=== PATIENT | female | born 1995 | race Two or more races ===

== ENCOUNTER 2017-02-21 08:44 | Emergency (ER) | payer SELFPAY ==
[2017-02-21] MEDS ORDERED: NORMAL SALINE 1000 ML 1,000 ML IV ONE ×2 (09:53→12:30)
[2017-02-21] MEDS ORDERED: ONDANSETRON HCL INJ/PF 4 MG/2 ML SDV IV ONE (09:54)
[2017-02-21 10:14] LABS: APPEARANCE,URINE CLOUDY; BILIRUBIN,URINE NEGATIVE (NEGATIVE); GLUCOSE, URINE NEGATIVE (NEGATIVE); KETONES,URINE NEGATIVE (NEGATIVE); LEUKOCYTE ESTERASE,URINE TRACE (NEGATIVE); NITRITE,URINE NEGATIVE (NEGATIVE); PROTEIN,URINE NEGATIVE (NEGATIVE); URINE SPECIFIC GRAVITY 1.024; UROBILINOGEN,URINE NEGATIVE mg/dL (<2.0)
[2017-02-21 10:31] LABS: ABSOLUTE EOSINOPHILS # (AUTO) 0.1 10^3/uL (0.0-0.6); ABSOLUTE LYMPHOCYTES (AUTO) 1.5 10^3/uL (0.5-4.7); ABSOLUTE MONOCYTES (AUTO) 0.8 10^3/uL (0.1-1.4); ABSOLUTE NEUT (AUTO) 10.3 10^3/uL (1.7-8.2); BASOPHILS % (AUTO) 0.3 % (0-2); EOSINOPHILS % (AUTO) 0.5 % (0-6); HEMATOCRIT 41.1 % (36.0-47.0); HEMOGLOBIN 13.4 g/dL (12.0-15.5); HGB HCT DIFFERENCE -0.9; LYMPHOCYTES % (AUTO) 11.7 % (13-45); MEAN CORPUSCULAR HEMOGLOBIN 27.9 pg (27.0-33.4); MEAN CORPUSCULAR HGB CONC 32.7 g/dL (32.0-36.0); MEAN CORPUSCULAR VOLUME 86 fl (80-97); MONOCYTES % (AUTO) 6.4 % (3-13); RED CELL DISTRIBUTION WIDTH 15.1 % (11.5-14.0); SEGMENTED NEUTROPHILS % (AUTO) 81.1 % (42-78); WHITE BLOOD COUNT 12.7 10^3/uL (4.0-10.5)
--- NOTE | 2017-02-21 10:44 | ER Document Report ---
ED General - General Chief Complaint: Back Pain Stated Complaint: ABDOMINAL PAIN Time Seen by Provider: 02/21/17 09:27 TRAVEL OUTSIDE OF THE [place] IN LAST 30 DAYS: No - HPI Patient complains to provider of: Epigastric right upper quadrant pain Notes: Patient coming in with epigastric right upper quadrant pain ongoing since yesterday. Patient states had posterior yesterday for dinner. Patient states multiple bouts of nausea vomiting. 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 Patient denies any further evaluation. Patient denies any other surgeries. Denies fevers and chills. Upon my evaluation patient is sitting up comfortably in no obvious distress. Denies any recent illnesses denies any recent travel denies any recent antibiotics. - Related Data Allergies/Adverse Reactions: No Known Allergies Allergy (Verified 02/21/17 08:52) Past Medical History - Social History Smoking Status: Unknown if Ever Smoked Family History: Reviewed & Not Pertinent Renal/ Medical History: Denies: Hx Peritoneal Dialysis Review of Systems - Review of Systems Constitutional: No symptoms reported EENT: No symptoms reported Cardiovascular: No symptoms reported Respiratory: No symptoms reported Gastrointestinal: Abdominal pain Genitourinary: No symptoms reported Female Genitourinary: No symptoms reported Musculoskeletal: No symptoms reported Skin: No symptoms reported Hematologic/Lymphatic: No symptoms reported Neurological/Psychological: No symptoms reported -: Yes All other systems reviewed and negative Physical Exam - Vital signs Vitals: Temp Pulse Resp BP Pulse Ox 97.7 F 54 L 18 92/72 L 100 02/21/17 08:49 02/21/17 08:49 02/21/17 08:49 02/21/17 08:49 02/21/17 08:49 Interpretation: Normal - General General appearance: Appears well, Alert - HEENT Head: Normocephalic, Atraumatic Eyes: Normal Pupils: PERRL - Respiratory Respiratory status: No respiratory distress Chest status: Nontender Breath sounds: Normal Chest palpation: Normal - Cardiovascular Rhythm: Regular Heart sounds: Normal auscultation Murmur: No - Abdominal Inspection: Normal Distension: No distension Bowel sounds: Normal Tenderness: Tender - Right upper quadrant pain, Son's sign Organomegaly: No organomegaly - Back Back: Normal, Nontender - Extremities General upper extremity: Normal inspection, Nontender, Normal color, Normal ROM , Normal temperature General lower extremity: Normal inspection, Nontender, Normal color, Normal ROM , Normal temperature, Normal weight bearing. No: Juventnio's sign - Neurological Neuro grossly intact: Yes Cognition: Normal Orientation: AAOx4 [place] Coma Scale Eye Opening: Spontaneous [place] Coma Scale Verbal: Oriented [place] Coma Scale Motor: Obeys Commands [place] Coma Scale Total: 15 Speech: Normal Motor strength normal: LUE, RUE, LLE, RLE Sensory: Normal - Psychological Associated symptoms: Normal affect, Normal mood - Skin Skin Temperature: Warm Skin Moisture: Dry Skin Color: Normal Course - Re-evaluation Re-evalutation: 02/21/17 18:15 The patient presents with abdominal pain without signs of peritonitis or other life-threatening or serious etiology. The patient appears stable for discharge and has been instructed to return immediately if the symptoms worsen in any way , or in 8-12hr if not improved for re-evaluation. The patient has been instructed to return if the symptoms worsen or change in any way. Patient coming in for right parotid abdominal pain with surgical sounds still recommend surgery however patient opted for medical management at this time. Patient will control her diet patient states she would like to wait till she returns to [place]. - Vital Signs Vital signs: Temp Pulse Resp BP Pulse Ox 98.5 F 66 16 107/59 L 99 02/21/17 15:43 02/21/17 15:43 02/21/17 15:43 02/21/17 15:43 02/21/17 15:43 - Laboratory Result Diagrams: 02/21/17 10:18 02/21/17 10:18 Laboratory results interpreted by me: 02/21/17 02/21/17 02/21/17 09:55 10:18 10:18 WBC 12.7 H RDW 15.1 H Seg Neutrophils % 81.1 H Lymphocytes % 11.7 L Absolute Neutrophils 10.3 H Direct Bilirubin 0.5 H AST 135 H ALT 82 H Ur Leukocyte Esterase TRACE H Discharge - Discharge Clinical Impression: Gallbladder sludge Condition: Good Disposition: HOME, SELF-CARE Instructions: Gallbladder Disease ([facility]), Low-Fat Diet ([facility]), Oral Narcotic Medication ([facility]) Additional Instructions: Your pain is more likely related to the sludge in her gallbladder. I recommend avoiding any food high in grease fat or oil. Return to the ER symptoms worsen. Take medications as prescribed. Prescriptions: Ondansetron [Zofran Odt 4 mg Tablet] 4 mg PO Q4HP PRN #30 tab.rapdis PRN Reason: Hydrocodone Bit/Acetaminophen [Hydrocodon-Acetaminophen 5-325] 1 each PO Q6 #30 tablet Forms: Return to Work
[2017-02-21 10:54] LABS: ALANINE AMINOTRANSFERASE 82 U/L (9-52); ALBUMIN 4.5 g/dL (3.5-5.0); ALKALINE PHOSPHATASE 104 U/L (38-126); ANION GAP 14 (5-19); ASPARTATE AMINO TRANSFERASE 135 U/L (14-36); BILIRUBIN,DIRECT 0.5 mg/dL (0.0-0.4); BILIRUBIN,TOTAL 0.6 mg/dL (0.2-1.3); BLOOD UREA NITROGEN 11 mg/dL (7-20); CALCIUM 9.9 mg/dL (8.4-10.2); CARBON DIOXIDE 25 mmol/L (22-30); CHLORIDE 104 mmol/L (98-107); CREATININE RESULT 0.72 mg/dL (0.52-1.25); GLUCOSE 110 mg/dL (75-110); LIPASE 117.4 U/L (23-300); POTASSIUM 4.1 mmol/L (3.6-5.0); SODIUM 142.5 mmol/L (137-145); TOTAL PROTEIN 7.7 g/dL (6.3-8.2)
[2017-02-21 11:09] LABS: ALCOHOL < 10 mg/dL (NONE DETECTED)
--- NOTE | 2017-02-21 12:20 | RADIOLOGY REPORT (SQ) ---
EXAM DESCRIPTION: U/S ABDOMEN LTD W/DOPPLER COMPLETED DATE/TIME: 02/21/2017 11:39 am REASON FOR STUDY: ruq pain COMPARISON: None. TECHNIQUE: Dynamic and static grayscale images acquired of the abdomen and recorded on PACS. Gennao merrick selected color Doppler and spectral images recorded. LIMITATIONS: None. FINDINGS: PANCREAS: No masses. Visualized pancreatic duct normal caliber. LIVER: 18.2 cm. Normal echotexture. LIVER VASCULATURE: Normal directional flow of the main portal vein and hepatic veins. GALLBLADDER: No stones. There appears to be a small amount of sludge present. Normal wall thickness . No pericholecystic fluid. ULTRASOUND-DETECTED DELUNA'S SIGN: Negative. INTRAHEPATIC DUCTS AND COMMON DUCT: Common bile duct is dilated at 11.5 mm. There is not appear to b e significant intrahepatic ductal dilatation, however. INFERIOR VENA CAVA: Normal flow. AORTA: No aneurysm. RIGHT KIDNEY: Normal size, 11.3 cm. Normal echogenicity. No solid or suspicious masses. No hydroneph rosis. No calcifications. PERITONEAL AND RIGHT PLEURAL SPACE: No ascites or effusions. OTHER: No other significant findings. IMPRESSION: 1. The liver is prominent at 18.2 cm. The echotexture is normal, however. 2. There appears to be a small amount of sludge in the gallbladder. No stones are seen. 3. The common bile duct is dilated at 11.5 mm. Correlate for biliary obstruction. TECHNICAL DOCUMENTATION: JOB ID: [id number] [employer]- All Rights Reserved
--- NOTE | 2017-02-21 15:04 | ER Document Report ---
ED General - General Chief Complaint: Back Pain Stated Complaint: ABDOMINAL PAIN Time Seen by Provider: 02/21/17 09:27 TRAVEL OUTSIDE OF THE [place] IN LAST 30 DAYS: No - Related Data Allergies/Adverse Reactions: No Known Allergies Allergy (Verified 02/21/17 08:52) Past Medical History - Social History Smoking Status: Unknown if Ever Smoked Family History: Reviewed & Not Pertinent Renal/ Medical History: Denies: Hx Peritoneal Dialysis Physical Exam - Vital signs Vitals: Temp Pulse Resp BP Pulse Ox 97.7 F 54 L 18 92/72 L 100 02/21/17 08:49 02/21/17 08:49 02/21/17 08:49 02/21/17 08:49 02/21/17 08:49 Course - Vital Signs Vital signs: Temp Pulse Resp BP Pulse Ox 97.7 F 54 L 18 92/72 L 100 02/21/17 08:49 02/21/17 08:49 02/21/17 08:49 02/21/17 08:49 02/21/17 08:49 - Laboratory Result Diagrams: 02/21/17 10:18 02/21/17 10:18 Laboratory results interpreted by me: 02/21/17 02/21/17 02/21/17 09:55 10:18 10:18 WBC 12.7 H RDW 15.1 H Seg Neutrophils % 81.1 H Lymphocytes % 11.7 L Absolute Neutrophils 10.3 H Direct Bilirubin 0.5 H AST 135 H ALT 82 H Ur Leukocyte Esterase TRACE H Discharge - Discharge Clinical Impression: Gallbladder sludge Condition: Good Disposition: HOME, SELF-CARE Instructions: Oral Narcotic Medication ([facility]), Gallbladder Disease ([facility]), Low- Fat Diet ([facility]) Additional Instructions: Your pain is more likely related to the sludge in her gallbladder. I recommend avoiding any food high in grease fat or oil. Return to the ER symptoms worsen. Take medications as prescribed. Prescriptions: Ondansetron [Zofran Odt 4 mg Tablet] 4 mg PO Q4HP PRN #30 tab.rapdis PRN Reason: Hydrocodone Bit/Acetaminophen [Hydrocodon-Acetaminophen 5-325] 1 each PO Q6 #30 tablet Forms: Return to Work
[2017-02-21 15:46] VITALS: BP 107/59
--- NOTE | 2017-02-21 16:58 | PDOC CONSULTATION ---
Consultation Consult Date: 02/21/17 Attending physician:: JUNE HOWELL Consult reason:: Abdominal pain History of Present Illness History of Present Illness: KIRA JOHNSON is a 21 year old female Who presents the emergency department complaining of abdominal pain, which woke her up in the middle of the morning. She has had multiple episodes mostly postprandial over the last several months. Patient is approximately 8 weeks. She thought she may have gallbladder disease, but was never diagnosed with gallstones. There is no family history. He was seen in the emergency department where she was found to have mildly elevated liver function studies, and a gallbladder ultrasound which showed sludge, bile duct of approximately 11 mm. Surgery was consulted. Patient received some fluids and some pain medication and states she is feeling better. Patient and came [facility] [place] [place] [facility] Past Surgical History Past Surgical History: Reports: Other - Recent section Social History Smoking Status: Never Smoker Hx Recreational Drug Use: No Hx Prescription Drug Abuse: No Family History Family History: Reviewed & Not Pertinent Parental Family History Reviewed: Yes Children Family History Reviewed: Yes Sibling(s) Family History Reviewed.: Yes Medication/Allergy Home Medications: Hydrocodone Bit/Acetaminophen [Hydrocodon-Acetaminophen 5-325] 1 each PO Q6 #30 tablet 02/21/17 Ondansetron [Zofran Odt 4 mg Tablet] 4 mg PO Q4HP PRN #30 tab.rapdis 02/21/17 Allergies/Adverse Reactions: No Known Allergies Allergy (Verified 02/21/17 08:52) Review of Systems Constitutional: PRESENT: as per HPI Eyes: ABSENT: visual disturbances Ears: ABSENT: hearing changes Cardiovascular: ABSENT: chest pain, dyspnea on exertion, edema, orthropnea, palpitations Respiratory: ABSENT: cough, hemoptysis Gastrointestinal: PRESENT: as per HPI Integumentary: ABSENT: rash, wounds Neurological: ABSENT: abnormal gait, abnormal speech, confusion, dizziness, focal weakness, syncope Physical Exam Vital Signs: Temp Pulse Resp BP Pulse Ox 98.5 F 66 16 107/59 L 99 02/21/17 15:43 02/21/17 15:43 02/21/17 15:43 02/21/17 15:43 02/21/17 15:43 Intake & Output 09/10/17 09/11/17 09/12/17 06:59 06:59 06:59 Weight 79.1 kg General appearance: PRESENT: mild distress Head exam: PRESENT: normocephalic Eye exam: PRESENT: EOMI Ear exam: PRESENT: normal external ear exam Neck exam: PRESENT: full ROM Respiratory exam: PRESENT: clear to auscultation [place] Cardiovascular exam: PRESENT: RRR Pulses: PRESENT: +2 pedal pulses bilateral GI/Abdominal exam: PRESENT: other - Abdomen is soft, minimally tender in the right upper quadrant there is no guarding, no real rebound. Results Laboratory Results: 02/21/17 10:18 02/21/17 10:18 02/21/17 02/21/17 02/21/17 09:55 10:18 10:18 WBC 12.7 H RBC 4.80 Hgb 13.4 Hct 41.1 MCV 86 MCH 27.9 MCHC 32.7 RDW 15.1 H Plt Count 268 Seg Neutrophils % 81.1 H Lymphocytes % 11.7 L Monocytes % 6.4 Eosinophils % 0.5 Basophils % 0.3 Absolute Neutrophils 10.3 H Absolute Lymphocytes 1.5 Absolute Monocytes 0.8 Absolute Eosinophils 0.1 Absolute Basophils 0.0 Sodium 142.5 Potassium 4.1 Chloride 104 Carbon Dioxide 25 Anion Gap 14 BUN 11 Creatinine 0.72 Est GFR ( Amer) > 60 Est GFR (Non-Af Amer) > 60 Glucose 110 Calcium 9.9 Total Bilirubin 0.6 AST 135 H ALT 82 H Alkaline Phosphatase 104 Total Protein 7.7 Albumin 4.5 Lipase 117.4 Urine Color DARK YELLOW Urine Appearance CLOUDY Urine pH 5.0 Ur Specific [place] 1.024 Urine Protein NEGATIVE Urine Glucose (UA) NEGATIVE Urine Ketones NEGATIVE Urine Blood NEGATIVE Urine Nitrite NEGATIVE Ur Leukocyte Esterase TRACE H Urine WBC (Auto) 6 Urine RBC (Auto) 7 Impressions: Abdomen Ultrasound 02/21/17 09:51 IMPRESSION: 1. The liver is prominent at 18.2 cm. The echotexture is normal, however. 2. There appears to be a small amount of sludge in the gallbladder. No stones are seen. 3. The common bile duct is dilated at 11.5 mm. Correlate for biliary obstruction. Assessment & Plan - Diagnosis (1) Gallbladder sludge Is this a current diagnosis for this admission?: Yes Plan: Acute superimposed on chronic, most consistent with chronic cholecystitis with cholelithiasis; mildly elevated liver function studies. Clinically the patient may have passed a stone and this was described in detail with the patient and her significant other by drawing diagrams etc. I explained to the patient that the safest course of action would be interval laparoscopic cholecystectomy, with intraoperative cholangiography to rule out any retained stone. I gave her and her significant other adenopathy to think about this. When I came back several hours later, they collectively decided to proceed with nonoperative management, and return to [place] and and seek medical care there. I told them that that was their choice, reviewed warning signs consistent with clinical deterioration . Therefore surgery will be available for reconsultation basis. - Time Time Spent: 30 to 50 Minutes Critical Time spent with patient: Less than 15 minutes Anticipated discharge: Home
== END 2017-02-21 15:35 | disposition home or self-care (01) ==
LOC: ER 08:44
DX: K82.8 Other specified diseases of gallbladder (principal); M54.9 Dorsalgia, unspecified; R10.9 Unspecified abdominal pain; R10.13 Epigastric pain; R10.11 Right upper quadrant pain
CPT/HCPCS: 99284; 96361; 96374; 36415; 80307; 84702; 83690; 85025; 80053; 81001; 76705; 93976; J2405; J7030